=== PATIENT | male | born 1955 | race African-American/Black ===

== ENCOUNTER 2016-12-26 09:00 | Emergency (ER) | payer MEDICARE, OTHER ==
--- NOTE | ~2016-12-26 | CR72 ---
[facility] A Service of [facility] & [facility] RADIOLOGY TEXT RESULTS PATIENT: CHARLOTTE LOCKE LOCATION: [facility] : 55 UNIT #: [id number] AGE: [address]: Kaleb Ramachandran MD SEX: M ORDER DR: [id number] [facility] [address] [place], [place] [address] [id number] E MR#: [id number] Acc #: [id number] NAME: CHARLOTTE LOCKE : 1955 SEX: M STUDY DATE/TIME: 12/26/2016 9:28 UNIT: [facility] ROOM: STUDY DESCRIPTION: CR Chest Single View Portable Attending Physician: Kaleb Ramachandran M.D. Ordering Physician: [id number] Irais Ramachandran Primary Care Physician: Anca Morales MEDICAL IMAGING REPORT This report is preliminary unless electronic signature is present EXAM Portable chest, 12/26/2016 COMPARISON STUDIES None. HISTORY Chest pain, shortness of breath for 3-4 days. FINDINGS An AP portable view is obtained. The cardiovascular configuration is normal and the lungs are clear. CONCLUSION Negative portable chest. Dictated by... Haseeb Melgar M.D. THIS IS AN ELECTRONICALLY VERIFIED REPORT Haseeb Melgar M.D. at 12/27/2016 9:16 AM SUNNY/rober TD: 12/26/2016 14:45 JOB #: [id number] MEDICAL IMAGING REPORT Page 1 of 1 COPY
--- NOTE | ~2016-12-26 | EKG ---
PATIENT: CHARLOTTE LOCKE UNIT #: [id number] Ventricular Rate: 70 BPM Atrial Rate: 70 BPM P-R Interval: 152 ms QRS Duration: 156 ms Q-T Interval: 412 ms QTC Calculation(Bezet): 444 ms P Sartell: 49 degrees Calculated R Sartell: -48 degrees Calculated T Sartell: 17 degrees Diagnosis Line: Normal sinus rhythm with sinus arrhythmia Diagnosis Line: Right bundle branch block Diagnosis Line: Left anterior fascicular block Diagnosis Line: Bifascicular block Diagnosis Line: Moderate voltage criteria for LVH, may be normal Diagnosis Line: variant Diagnosis Line: Abnormal ECG Diagnosis Line: No previous ECGs available Diagnosis Line: Confirmed by SVETLANA LOYA MD ([id number]) on 12/27/2016 Diagnosis Line: 4:39:54 PM INTERPRETING MD: SHALINI FORD
[~2016-12-26 09:00] MED LIST: GLUCOPHAGE500 M1 PO; LITHIUM CARBON450 M1 PO; NEURONTIN800 MG DOB; NORVASC10 MG PO; QUETIAPINE FUM200 MG PO; QUETIAPINE FUM300 MG PO; TRAZODONE HCL100 MG PO; ZYPREXA15 MG PO
[2016-12-26 09:58] LABS: POC - CKMB 2.5 ng/mL (0.0-7.9); POC - TROPONIN <0.05 ng/mL (<=0.05)
[2016-12-26 10:04] LABS: BASOPHIL# 0.1 X10e3 (0-0.3); BASOPHIL% 1.3 % (0-2.5); EOSINOPHIL% 0.8 % (0.0-7.0); HEMATOCRIT 38.5 % (38.0-50.0); HEMOGLOBIN 12.5 gm/dL (13.0-16.0); LYMPHOCYTE% 31.9 % (17.0-45.0); MEAN CELL VOLUME 86.2 FL (83-96); MEAN CORPUSCULAR HGB CONC 32.5 g/dL (30-36); MEAN PLATELET VOLUME 8.5 FL (6.5-11.5); MONOCYTE# 0.4 X10e3 (0-1.0); MONOCYTE% 6.9 % (3.0-12.0); NEUTROPHIL# 3.6 X10e3 (1.5-7.1); NEUTROPHIL% 59.1 % (40-75); PLATELET COUNT 192 X10e3 (140-420); RED BLOOD COUNT 4.47 X10e (3.90-5.60); RED CELL DISTRIBUTION WIDTH 13.7 % (11.0-15.5); WHITE BLOOD COUNT 6.1 X10e3 (4.0-10.5)
[2016-12-26 10:05] LABS: DIFF IND NO
[2016-12-26 10:17] LABS: PARTIAL THROMBOPLASTIN TIME 24.5 SECONDS (23.5-31.3)
[2016-12-26 10:32] LABS: ALBUMIN SERUM 3.9 g/dL (3.5-5.0); BILIRUBIN, DIRECT 0.1 mg/dL (0.0-0.2); BILIRUBIN,INDIRECT 0.6 mg/dL (0.0-0.9); BILIRUBIN,TOTAL 0.7 mg/dL (0.2-2.0); BUN/CREATININE RATIO 11.11; CALCIUM SERUM 8.2 mg/dL (8.4-10.2); CREATININE SERUM 0.9 mg/dL (0.6-1.4); GLOM FILT RATE Estimated 106.5 mL/min (>60); POTASSIUM 3.8 mmol/L (3.5-5.1); PROTEIN TOTAL SERUM 6.3 g/dL (6.0-8.3)
[2016-12-26 11:47] LABS: POC - TROPONIN <0.05 ng/mL (<=0.05)
== END 2016-12-26 12:10 | disposition home or self-care (01) ==
LOC: CED 09:00
PROVIDERS: Emergency Medicine
DX: R07.9 Chest pain, unspecified (principal); E11.9 Type 2 diabetes mellitus without complications; Z88.8 Allergy status to other drugs, medicaments and biological substances; Z79.84 Long term (current) use of oral hypoglycemic drugs; Z79.899 Other long term (current) drug therapy
CPT/HCPCS: 36415; 71010; 80048; 80076; 82553; 84484; 85025; 85610; 85730; 93005; 99285

== ENCOUNTER → 2017-01-21 | Outpatient (CLI) | payer MEDICARE, OTHER ==
--- NOTE | ~2017-01-21 | TH ---
Unit #: [id number] #: [id number] Patient: CHARLOTTE LOCKE [id number] [address] [address] [id number] O MR#: [id number] NAME: CHARLOTTE LOCKE : 1955 SEX: M STUDY DATE/TIME: 01/21/2017 UNIT: [facility] ROOM: STUDY DESCRIPTION: Stress nuclear Attending Physician: John Ferris M.D. Referring Physician: John Ferris M.D. Primary Care Physician: Anca Morales A.P.R.N. CARDIOLOGY REPORT EXAM Stress nuclear. FINDINGS Result text under stress test. Please see this report for result text. Dictated by... Christa Nur/ciera TD: 01/21/2017 12:56 JOB #: [id number] CARDIOLOGY REPORT Page 1 of 1 X Nimesh Arora MD CARDIOLOGY REPORT
--- NOTE | ~2017-01-21 | ST ---
Unit #: [id number] #: [id number] Patient: CHARLOTTE LOCKE [id number] [address] [place], [place] [address] [id number] O MR#: [id number] NAME: CHARLOTTE LOCKE : 1955 SEX: M STUDY DATE/TIME: 01/21/2017 UNIT: [facility] ROOM: STUDY DESCRIPTION: Stress test Attending Physician: John Ferris M.D. Referring Physician: John Ferris M.D. Primary Care Physician: Anca Morales A.P.R.N. CARDIOLOGY REPORT EXAM Stress nuclear and ECG combined. INDICATIONS Chest pain, intermittent; hypertension; dyslipidemia; diabetes; and former tobacco abuse. SUMMARY Patient exercised on a Alphonso protocol to maximal effort. Technetium 99 Cardiolite, 9.66 and 33 mCi, was injected at rest and stress, respectively. Appropriate views were obtained. FINDINGS The resting ECG is abnormal with right bundle branch block and secondary ST changes. With stress, there were diagnostic shifts in leads V2 through V6 with 2-3 mm horizontal to upsloping ST depression. There were PAC couplets and single PVCs. ECG changes resolved within 17 seconds of recovery. ECG then became abnormal at about 5 minutes post exercise, but only in V2 and V3 with recurrent [address] depression. Patient completed 4 minutes, 42 seconds of exercise with heart rate increasing from 57 to 151 (94%) and blood pressure increasing 141/77 to 200/82. Perfusion images demonstrate diaphragmatic artifact, but otherwise normal perfusion at both and stress. LV size actually decreases with stress compared to rest and is upper limits of normal at rest. Planar images demonstrated no significant patient motion at rest or stress. There is no significant lung uptake, although there is [id number] LV enlargement. RV also appears enlarged. Gated perfusion wall motion analysis demonstrates end-diastolic volume 142 mL, ejection fraction quantitatively 53% and qualitatively it is approximately the same. Summed stress score is 1. IMPRESSION 1. Severe deconditioning based on the patient's age. 2. Normal heart rate response. 3. Hypertensive blood pressure responses. 4. Abnormal stress ECG, suggestive of ischemia, although this may be related to the borderline hypertensive blood pressure response. 5. Normal stress nuclear study with no ischemia or infarction. 6. Enlarged LV, [id number]. 7. Low normal ejection fraction. Unit #: [id number] #: [id number] Patient: CHARLOTTE LOCKE Dictated by... Christa Nur/ciera TD: 01/21/2017 12:45 JOB #: [id number] CARDIOLOGY REPORT Page 1 of 1 X Nimesh Arora MD CARDIOLOGY REPORT
== END | disposition home or self-care (01) ==
LOC: CNUC 07:35
DX: R94.31 Abnormal electrocardiogram [ECG] [EKG] (principal); R07.9 Chest pain, unspecified
CPT/HCPCS: 78452; 93017; A9500